=== PATIENT | male | born 1965 | race Caucasian/White ===

== ENCOUNTER 2022-04-28 11:07 | Emergency (ER) | payer OTHER ==
[~2022-04-28] VITALS: Ht 185.4 cm; Wt 74.8 kg
[2022-04-28 11:15] VITALS: BP_SYST 132
--- NOTE | 2022-04-28 11:15 | NUR ---
Placed in room 1 . Placed on monitoring coordinator, blood pressure machine and pulse oximeter. To gown for exam. Side rails up. Report given to MIGUEL WEISS AND MIGUEL BAUMANN.
--- NOTE | 2022-04-28 11:17 | NUR ---
Patient c/o leaking G-tube
--- NOTE | 2022-04-28 11:20 | NUR ---
20F G-tube placed with 10ml air placement pending by xray confirmation.
--- NOTE | 2022-04-28 11:58 | NUR ---
Xray at bedside
[2022-04-28 11:59] VITALS: BP_SYST 121
[2022-04-28] MEDS ORDERED: DIATR MEGLU/DIATRIZ SOD 30 ML SOLUTION PO ONE (12:12)
--- NOTE | 2022-04-28 12:13 | NUR ---
xray at bedside
--- NOTE | 2022-04-28 12:34 | NUR ---
Patient given written and verbal discharge instructions and verbalizes understanding. ER MD discussed with patient the results and treatment provided. Patient in stable condition. ID arm band removed. IV catheter removed intact and dressing applied, no active bleeding. Patient educated on pain management and to follow up with PMD. Pain Scale 0/10 Opportunity for questions provided and answered. Medication side effect fact sheet provided.
== END 2022-04-28 12:34 | disposition home or self-care (01) ==
LOC: SED 11:07
DX: Z43.1 Encounter for attention to gastrostomy (principal); Z79.899 Other long term (current) drug therapy
CPT/HCPCS: 99284; 43762; 74240; Q9964

== ENCOUNTER 2022-05-30 14:19 | Emergency (ER) | payer OTHER ==
[~2022-05-30] VITALS: Ht 185.4 cm; Wt 74.8 kg
[2022-05-30 14:40] VITALS: BP_SYST 133
[2022-05-30] MEDS ORDERED: GASTROGRAFIN 120 ML ONE (15:10)
[2022-05-30] MEDS ORDERED: LIDOCAINE JELLY 5 ML TUBE MM ONE (15:30)
[2022-05-30] MEDS ORDERED: CEPH250C PO (15:43)
[2022-05-30 16:59] VITALS: BP_SYST 129
== END 2022-05-30 16:58 | disposition home or self-care (01) ==
LOC: SED 14:19
DX: K94.23 Gastrostomy malfunction (principal); Z79.899 Other long term (current) drug therapy
CPT/HCPCS: 99284; 43762; 74018; Q9963